=== PATIENT | female | born 1960 | race Asian ===

== ENCOUNTER 2016-09-28 13:17 | Outpatient (CLI) | payer OTHER | END 2016-09-28 19:33 | disposition home or self-care (01) | LOC: MAMMO 13:17 | DX: R92.8 Other abnormal and inconclusive findings on diagnostic imaging of breast (principal) | CPT/HCPCS: 77056; G0206 ==

== ENCOUNTER 2018-05-11 08:48 | Outpatient (CLI) | payer OTHER | END 2018-05-11 22:40 | disposition home or self-care (01) | LOC: MAMMO 08:48 | DX: Z12.31 Encounter for screening mammogram for malignant neoplasm of breast (principal); M81.0 Age-related osteoporosis without current pathological fracture ==

== ENCOUNTER 2018-05-30 13:54 | Outpatient (CLI) | payer OTHER | END 2018-05-30 21:44 | disposition home or self-care (01) | LOC: RAD 13:54 | DX: Z79.899 Other long term (current) drug therapy (principal) ==

== ENCOUNTER 2018-06-26 09:47 | Outpatient (CLI) | payer OTHER | END 2018-06-26 22:40 | disposition home or self-care (01) | LOC: MAMMO 09:47 | DX: R92.8 Other abnormal and inconclusive findings on diagnostic imaging of breast (principal) ==

== ENCOUNTER 2018-10-15 08:20 | Outpatient (CLI) | payer OTHER | END 2018-10-15 19:09 | disposition home or self-care (01) | LOC: RAD 08:20 | DX: M85.89 Other specified disorders of bone density and structure, multiple sites (principal); M89.9 Disorder of bone, unspecified ==

== ENCOUNTER 2018-12-24 09:12 | Outpatient (CLI) | payer OTHER | END 2018-12-24 22:57 | disposition home or self-care (01) | LOC: MAMMO 09:12 | DX: R92.8 Other abnormal and inconclusive findings on diagnostic imaging of breast (principal) ==

== ENCOUNTER 2019-06-18 10:29 | Outpatient (CLI) | payer OTHER | END 2019-06-18 23:44 | disposition home or self-care (01) | LOC: RAD 10:29 | DX: M05.89 Other rheumatoid arthritis with rheumatoid factor of multiple sites (principal) ==

== ENCOUNTER 2019-07-11 09:11 | Outpatient (CLI) | payer OTHER | END 2019-07-11 23:28 | disposition home or self-care (01) | LOC: US 09:11 | DX: Z79.899 Other long term (current) drug therapy (principal) ==

== ENCOUNTER 2019-08-29 10:13 | Outpatient (CLI) | payer OTHER | END 2019-08-29 20:13 | disposition home or self-care (01) | LOC: MAMMO 10:13 | DX: R92.8 Other abnormal and inconclusive findings on diagnostic imaging of breast (principal) ==

== ENCOUNTER 2019-10-30 11:27 | Outpatient (CLI) | payer OTHER | END 2019-10-30 20:26 | disposition home or self-care (01) | LOC: RAD 11:27 | DX: M05.89 Other rheumatoid arthritis with rheumatoid factor of multiple sites (principal); M25.561 Pain in right knee ==

== ENCOUNTER 2019-11-26 10:26 | Outpatient (CLI) | payer OTHER | END 2019-11-26 19:17 | disposition home or self-care (01) | LOC: RAD 10:26 | DX: M05.59 Rheumatoid polyneuropathy with rheumatoid arthritis of multiple sites (principal); M17.11 Unilateral primary osteoarthritis, right knee; M1A.09X0 Idiopathic chronic gout, multiple sites, without tophus (tophi); M25.562 Pain in left knee; M79.7 Fibromyalgia ==

== ENCOUNTER 2020-09-07 14:09 | Outpatient (CLI) | payer OTHER | END 2020-09-07 19:40 | disposition home or self-care (01) | LOC: RAD 14:09 | PROVIDERS: ATTEND Nurse Practitioner Family | DX: M05.89 Other rheumatoid arthritis with rheumatoid factor of multiple sites (principal) ==

== ENCOUNTER 2020-09-30 09:52 | Outpatient (CLI) | payer OTHER | END 2020-09-30 19:35 | disposition home or self-care (01) | LOC: MAMMO 09:52 | PROVIDERS: ATTEND Nurse Practitioner Family | DX: Z12.31 Encounter for screening mammogram for malignant neoplasm of breast (principal) ==

== ENCOUNTER 2020-11-24 11:40 | Emergency (ER) | payer OTHER ==
[~2020-11-24] VITALS: Ht 165.1 cm; Wt 69.9 kg
[2020-11-24 12:33] LABS: PLATELET COUNT 308 K/uL (152-353)
[2020-11-24 12:38] LABS: POTASSIUM 4.1 mmol/L (3.6-5.2); SODIUM 139 mmol/L (136-145)
[2020-11-24 14:10] VITALS: BP 155/87; TEMP 97.6
== END 2020-11-24 14:10 | disposition home or self-care (01) ==
LOC: ED 11:40
PROVIDERS: Family Medicine
DX: R07.89 Other chest pain (principal); R06.4 Hyperventilation; Z03.818 Encounter for observation for suspected exposure to other biological agents ruled out
CPT/HCPCS: 80053; 84484; 85027; 87635; 93005; 99283; U0003

== ENCOUNTER 2021-10-04 08:43 | Outpatient (CLI) | payer OTHER | END 2021-10-04 20:22 | disposition home or self-care (01) | LOC: MAMMO 08:43 | PROVIDERS: ATTEND Physician Assistant | DX: Z12.31 Encounter for screening mammogram for malignant neoplasm of breast (principal) ==

== ENCOUNTER 2022-04-22 11:05 | Outpatient (CLI) | payer OTHER ==
[~2022-04-22 11:05] MED LIST: ALLO100T22 PO; ASCO500T18 PO; BACLOFEN10 MG PO; CHOL100034 PO; COLCHICINE0.6 M1 PO; HYDROCHLOROT12.5 M1 PO; KLOR-CON M1010 MEQ PO; KP FOLIC ACID1 MG PO; LORATADINE10 MG PO; MEDROL DOSEPAK4 MG PO; METHOTREXATE S2.5 MG PO; METO-837 PO; NEURONTIN 100M100 MG PO; ZINC220C4 PO; ZITHROMAX500 MG PO
== END 2022-04-22 21:56 | disposition home or self-care (01) ==
LOC: RAD 11:05
PROVIDERS: ATTEND Nurse Practitioner Family
DX: M05.89 Other rheumatoid arthritis with rheumatoid factor of multiple sites (principal); M17.0 Bilateral primary osteoarthritis of knee; M1A.09X0 Idiopathic chronic gout, multiple sites, without tophus (tophi)

== ENCOUNTER 2022-07-05 10:38 | Outpatient (CLI) | payer OTHER | END 2022-07-05 20:31 | disposition home or self-care (01) | LOC: RAD 10:38 | PROVIDERS: ATTEND Nurse Practitioner Family | DX: M05.79 Rheumatoid arthritis with rheumatoid factor of multiple sites without organ or systems involvement (principal); M17.0 Bilateral primary osteoarthritis of knee; M1A.09X0 Idiopathic chronic gout, multiple sites, without tophus (tophi); R94.5 Abnormal results of liver function studies; Z79.899 Other long term (current) drug therapy ==

== ENCOUNTER 2022-10-24 09:27 | Emergency (ER) | payer OTHER ==
[~2022-10-24] VITALS: Ht 154.9 cm; Wt 91.6 kg
[2022-10-24] MEDS ORDERED: PREDNISONE20 MG PO (10:44)
[2022-10-24 10:45] VITALS: BP 157/67; TEMP 99.2
== END 2022-10-24 10:45 | disposition home or self-care (01) ==
LOC: ED 09:27
DX: R22.0 Localized swelling, mass and lump, head (principal); T36.8X5A Adverse effect of other systemic antibiotics, initial encounter; X58.XXXA Exposure to other specified factors, initial encounter; Y92.89 Other specified places as the place of occurrence of the external cause
CPT/HCPCS: 81002; 87651; 96372; 99283; J1200